=== PATIENT | female | born 1950 | race Caucasian/White ===

== ENCOUNTER 2016-05-11 08:15 | Inpatient (IN) | payer OTHER ==
[2016-04-23 12:10] LABS: % IMMATURE GRANULYOCYTES 0.2 % (0.0-1.1); ABSOLUTE IMMATURE GRANULOCYTES 0.01 10^3/uL (0.00-0.10); ADD DIFF? NO; ADD MORPH? NO; ADD SCAN? NO; ATYPICAL LYMPHOCYTE FLAG 10 (0-99); FRAGMENT RBC FLAG 0 (0-99); HEMATOCRIT 38.3 % (38.0-47.0); HEMOGLOBIN 12.8 g/dL (12.6-16.3); LEFT SHIFT FLG 0 (0-99); LIPEMIA HEMOLYSIS FLAG 80 (0-99); MEAN CELL HEMOGLOBIN 30.9 pg (27.9-34.1); MEAN CELL HEMOGLOBIN CONCENTR. 33.4 g/dL (32.4-36.7); MEAN CELL VOLUME 92.5 fL (81.5-99.8); MEAN PLATELET VOLUME 10.6 fL (8.7-11.7); PLATELET CLUMPS FLAG 0 (0-99); PLATELET COUNT 244 10^3/uL (150-400); RED BLOOD CELL COUNT 4.14 10^6/uL (4.18-5.33); RED CELL DISTRIBUTION WIDTH 14.6 % (11.5-15.2)
[~2016-05-11 08:15] MED LIST: ACETAMINOPHEN 325 MG TAB PO ONE; CEFAZOLIN 2 GM/DEXTR 100 ML IV ONE; CHLORHEXIDINE GLUC HIBICLENS 118 ML BTL TP ONE; DEXAMETHASONE 4 MG/ML VIAL IVP ONE; FAMOTIDINE 20 MG TAB PO ONE; ROPI/epiNEPH/KETOROLAC JOINT COCKTAIL IU ONE; SKIN ADHESIVE (DERMABOND) 1 EACH TP ONE; TRANEXAMIC ACID 3,000 MG in NS 50 ML IRR ONE; TRANEXAMIC ACID 3,000 MG/50 ML BAG IRR ONE; VANCOMYCIN 1 GM VIAL IV ONE
[2016-05-11] MEDS ORDERED: DEXAMETHASONE 4 MG/ML VIAL ONE ×2 (11:38→13:27)
[2016-05-11] MEDS ORDERED: FAMOTIDINE 20 MG TAB ONE (11:38)
[2016-05-11] MEDS ORDERED: ACETAMINOPHEN 325 MG TAB ONE (11:38)
[2016-05-11] MEDS ORDERED: CEFAZOLIN 2 GM/DEXTROSE/100 ML BAG IV ONE (11:38)
[2016-05-11] MEDS ORDERED: LIDOCAINE 1% 5 ML SDV ONE (11:57)
[2016-05-11] MEDS ORDERED: MIDAZOLAM 2 MG/2 ML VIAL ONE (13:09)
[2016-05-11] MEDS ORDERED: ONDANSETRON 4 MG/2 ML VIAL ONE (13:27)
[2016-05-11] MEDS ORDERED: PROMETHAZINE HCL 25 MG SUPPR PR PRN (13:37)
[2016-05-11] MEDS ORDERED: POLYETHYLENE GLYCOL 3350 17 GM PKT PO PRN (13:37)
[2016-05-11] MEDS ORDERED: ONDANSETRON 4 MG/2 ML VIAL IVP PRN (13:37)
[2016-05-11] MEDS ORDERED: TEMAZEPAM 15 MG CAP PO PRN (13:37)
[2016-05-11] MEDS ORDERED: ONDANSETRON DISINTEGRATING 4 MG TAB PO PRN (13:37)
[2016-05-11] MEDS ORDERED: PROMETHAZINE HCL 25 MG/ML INJ IVP PRN (13:37)
[2016-05-11] MEDS ORDERED: BISACODYL 10 MG SUPP PR PRN (13:37)
[2016-05-11] MEDS ORDERED: METOCLOPRAMIDE 10 MG/2 ML VIAL IVP PRN (13:37)
[2016-05-11] MEDS ORDERED: DIPHENOXYLATE/ATROPINE LOMOTIL 1 TAB PO PRN (13:37)
[2016-05-11] MEDS ORDERED: MAGNESIUM HYDROXIDE 30 ML UDCUP PO PRN (13:37)
[2016-05-11] MEDS ORDERED: LACTULOSE 20 GM/30 ML UDCUP PO PRN (13:37)
[2016-05-11] MEDS ORDERED: diphenhydrAMINE 25 MG CAP PO PRN (13:37)
[2016-05-11] MEDS ORDERED: PHARMACY PAIN CONSULT 1 EA MISC PRN (13:37)
[2016-05-11] MEDS ORDERED: ROPIVACAINE HCL 150 MG/30 ML INJ ONE (13:43)
[2016-05-11] MEDS ORDERED: LR 1,000 ML IV SCH (14:00)
--- NOTE | 2016-05-11 14:42 | POSTOPPROG ---
Post Op Note Date of Operation: 05/11/16 Surgeon: Lorrie Mcqueen Statement Request Clerk: Natalya Mcqueen PAc Anesthesiologist: Ad Anesthesia: Spinal Pre-op Diagnosis: L knee djd Post-op Diagnosis: same Indication: pain Procedure: L TKA Findings: djd knee Inf/Abcess present in the surg proc area at time of surgery?: No EBL: 50-100
[2016-05-11] MEDS: oxyCODONE IR 5 MG TAB PO PRN ×3 (16:10→21:33)
[2016-05-11] MEDS: CYCLOBENZAPRINE 10 MG TAB PO PRN (16:10)
--- NOTE | 2016-05-11 16:36 | DX ---
Left Knee, Two Views, at 16:19 p.m. Indication: Recent total knee arthroplasty. Technique: Crosstable lateral and AP views. Findings: A three-piece total knee arthroplasty is anatomically aligned. No perihardware fracture. Expected intraarticular and subcutaneous gas. Impression: Good positioning of total knee arthroplasty.
[2016-05-11] MEDS: ACETAMINOPHEN 325 MG TAB PO SCH (17:35)
[2016-05-11] MEDS ORDERED: NS BOLUS 500 ML (Wide open) IV ONE (20:00)
[2016-05-11] MEDS: SENNOSIDES/DOCUSATE SODIUM TAB PO SCH (20:10)
[2016-05-11] MEDS: ASPIRIN 325 MG TAB PO SCH (20:10)
[2016-05-11] MEDS: FAMOTIDINE 20 MG TAB PO SCH (20:11)
[2016-05-11] MEDS: ceFAZolin 2 GM/DEXTROSE 100 ML IV SCH (22:25)
[2016-05-12] MEDS: ACETAMINOPHEN 325 MG TAB PO SCH ×3 (00:16→11:19)
[2016-05-12] MEDS: oxyCODONE IR 5 MG TAB PO PRN ×5 (00:17→13:28)
[2016-05-12] MEDS: CYCLOBENZAPRINE 10 MG TAB PO PRN (00:17)
--- NOTE | 2016-05-12 01:02 | GOP ---
[f rep st] OPERATIVE REPORT DATE OF OPERATION: 05/11/2016 SURGEON: Zahraa Mcqueen MD BAILIFF: RHEA Henderson. ANESTHESIA: Spinal. PREOPERATIVE DIAGNOSIS: Left knee osteoarthritis. POSTOPERATIVE DIAGNOSIS: Left knee osteoarthritis. PROCEDURE PERFORMED: Left total knee arthroplasty. FINDINGS: ESTIMATED BLOOD LOSS: 30 cc. INDICATIONS: This is a 65-year-old woman with severe and progressive pain and deformity of the left knee unresponsive to conservative care. Risks and benefits of the surgical intervention were explain ed in detail. DESCRIPTION OF PROCEDURE: The patient was brought to the operative room and placed on the table in t he supine position. Spinal anesthesia was induced without difficulty. A pneumatic tourniquet was ap plied about the left proximal thigh, and the leg was prepped and draped in a sterile fashion. The le g rubio was applied. After exsanguination by elevation the tourniquet was inflated to 250 mm of kimberley cury. Incision was made anterior medial from the tibial tuberosity to a point 2 cm proximal to the superior pole of the patella. Medial parapatellar arthrotomy was carried out from the superior pole of the p atella and posteriorly in line with the fibers of the type 2 VMO. The medial collateral ligament was elevated and the infrapatellar fat pad was resected. The patella was everted and the articular surface was excised. A 32 mm patellar button was placed. T he distal femoral guide hole was drilled and the 65 degree alignment franki was placed. A 10 mm distal femoral cut was made without difficulty. Attention was turned to the tibia and a standard 9 mm cut based on the lateral tibial condyle was per formed. The tibial articular surface was excised without difficulty. Attention was turned back to the femur and a size 4 Triathlon tibia femoral cutting block was positio giana. Anterior, posterior, and chamfer cuts were made, followed by the intercondylar box cut. The knee was extended and the remnants of the medial and lateral meniscus were excised. The posterio r capsule was injected with ropivacaine, epinephrine and Toradol. A size 4 MIS mini keel tibial tray was positioned. Trial reduction was then carried out. There was excellent range of motion, alignme nt, and stability using the 11mm polyethylene. All trials were then removed. The joint was thoroughly irrigated and carefully dried. Two packages of cement and 2 grams of vancomycin were mixed in the vacuum mixer and placed on the fixation surface s of all surfaces of the components. The components were implanted and all excess cement was thoroug hly removed. The permanent 11 mm polyethylene was placed without difficulty. The tourniquet was deflated and all bleeders were coagulated. The wound was thoroughly irrigated and closed using interrupted sutures of 2-0 Vicryl for the joint capsule. The subcu was closed with 3-0 Vicryl and the skin with 4-0 Monocryl. Dermabond and Steri-Strips were applied followed by a compre ssive dressing. The patient was then moved from the operating room to the recovery room in good cond ition, having tolerated the procedure well. /[id number]/MODL
[2016-05-12] MEDS: ceFAZolin 2 GM/DEXTROSE 100 ML IV SCH (05:05)
[2016-05-12 05:37] LABS: HEMATOCRIT 34.9 % (38.0-47.0); HEMOGLOBIN 11.3 g/dL (12.6-16.3)
[2016-05-12] MEDS: ASPIRIN 325 MG TAB PO SCH (09:00)
[2016-05-12] MEDS: FAMOTIDINE 20 MG TAB PO SCH (09:01)
[2016-05-12] MEDS: SENNOSIDES/DOCUSATE SODIUM TAB PO SCH (09:01)
--- NOTE | 2016-05-12 10:10 | SOAPPROG ---
SOAP Progress Note Assessment/Plan: Assessment: Kyra is doing well POD 1 s/p L TKA 1) pain management: doing well on oral pain meds. well controlled. 2) anemia: level expected initially postop, asymptomatic. continue to monitor 3) VTe ppx: aspirin 325mg daily, JAMES hose and SCDs. 4) D/c planning: patient may be d/c'd to home today. Plan: 05/12/16 10:08 Subjective: Kyra is doing well today, denies SOB, chest pain and N/V Objective: Vital Signs Temp Pulse Resp BP Pulse Ox 36.7 C 56 L 16 110/79 97 05/12/16 07:36 05/12/16 07:36 05/12/16 07:36 05/12/16 07:36 05/12/16 07:36 Laboratory Results 05/12/16 05:12 05/11/16 05/12/16 05/13/16 05:59 05:59 05:59 Intake Total 4270 150 Output Total 3805 575 Balance 465 -425 LLE: incision dressing is clean and dry, NVI, +pf/df ICD10 Worksheet Patient Problems: Problems Problem Status Diagnosed Primary localized osteoarthritis of left knee Acute
[2016-05-12 13:12] VITALS: BP 121/71; PULSE 53; RESP 17; TEMP 97.6; O2SAT 92
--- NOTE | 2016-05-12 13:38 | GDS ---
[f rep st] DISCHARGE SUMMARY ADMISSION DIAGNOSIS: Left knee osteoarthritis. DISCHARGE DIAGNOSIS: Left knee osteoarthritis. PROCEDURE: Left total knee arthroplasty. VTE PROPHYLAXIS: Aspirin recommended for 3 weeks daily. BRIEF DESCRIPTION OF HOSPITAL STAY: Patient was admitted for an elective joint arthroplasty. The pa tient tolerated the procedure well and has passed physical therapy. The patient was given appropriat e antibiotic prophylaxis and venous thromboembolism prophylaxis. The patient's pain was well control led on oral pain medication, patient was holding down food, and had urinated. Decision was made to d ischarge the patient. The patient was given post-operative prescriptions pre-operatively. PLAN: Please follow up as scheduled with Dr. Mcqueen at [facility] on May 31, 2016 at 11:00 a.m. /[id number]/MODL
== END 2016-05-12 13:57 | disposition home or self-care (01) | DRG 470 ==
LOC: F3N 11:00
PROVIDERS: ADMIT Orthopaedic Surgery; ATTEND Orthopaedic Surgery
PROC: 0SRD0J9 Replacement of Left Knee Joint with Synthetic Substitute, Cemented, Open Approach (ICD-10-PCS; principal; 2016-05-11 13:15)
DX: M17.12 Unilateral primary osteoarthritis, left knee (principal)
CPT/HCPCS: 97116-GP; 97161-GP; 97165-GO; C1713; J0171; J0690; J1100; J1885; J2250; J2405; J2795; J3370

== ENCOUNTER 2016-05-17 09:09 | Emergency (ER) | payer OTHER ==
--- NOTE | 2016-05-17 09:21 | EDPHY ---
H & P Stated Complaint: post l knee replacement surgery/constipation/vomiting Time Seen by Provider: 05/17/16 09:15 - Personal History Current Tetanus/Diphtheria Vaccine: Unsure - Medical/Surgical History Hx Asthma: No Hx Chronic Respiratory Disease: No Hx Diabetes: No Hx Cardiac Disease: No Hx Renal Disease: No Hx Cirrhosis: No Hx Alcoholism: No Hx HIV/AIDS: No Hx Splenectomy or Spleen Trauma: No Other PMH: rectocele repair l knee replacement - Social History Smoking Status: Former smoker Constitutional: Initial Vital Signs Temperature (C) 36.5 C 05/17/16 09:12 Heart Rate 69 05/17/16 09:12 Respiratory Rate 17 05/17/16 09:12 Blood Pressure 136/62 H 05/17/16 09:12 O2 Sat (%) 98 05/17/16 09:12 O2 Delivery Mode Nasal Cannula O2 (L/minute) 2 Allergies/Adverse Reactions: No Known Allergies Allergy (Verified 05/17/16 09:09) Home Medications: Medication Instructions Recorded Acetaminophen [Tylenol 325mg (*)] 650 mg PO Q6HRS #0 tab 05/12/16 Aspirin [Aspirin 325 mg (*)] 325 mg PO DAILY #0 tab 05/12/16 Sennosides/Docusate Sodium 1 - 2 tab PO BID #0 tab 05/12/16 [Senokot-S] celeCOXIB [Celebrex (*)] 200 mg PO DAILY #20 cap 05/12/16 oxyCODONE IR [Oxycodone Ir (*)] 5 - 10 mg PO Q3HRS PRN #120 tab 05/12/16 Zofran 05/17/16 Medical Decision Making ED Course/Re-evaluation: CHIEF COMPLAINT: Nausea vomiting constipation HISTORY OF PRESENT ILLNESS: 65-year-old female who had a total knee replacement on the left done by Dr. Mcqueen this past Saturday. The 1st day home which was postoperative day 2 She had significant problems with nausea associated with her oxycodone. She then had difficulty with pain control and then was put back on oxycodone and given Zofran before that. That seemed to work initially but now she is very constipated and is having significant nausea and also pain control issues REVIEW OF SYSTEMS: A 10 point review of systems was performed and is negative with the exception of the elements mentioned in the history of present illness. PHYSICAL EXAM: HR, BP, O2 Sat, RR. Temp noted General Appearance: Alert, well hydrated, appropriate, and non-toxic appearing. Head: Atraumatic without scalp tenderness or obvious injury Eyes: Pupils equal, round, reactive to light and accommodation, EOMI, no trauma , no injection. Ears: Clear bilaterally, no perforation, normal landmarks Nose: Atraumatic, no rhinorrhea, clear. Throat: There is no erythema or exudates, no lesions, normal tonsils, mucus membranes moist. Neck: Supple, 2+ carotid upstroke, nontender, no lymphadenopathy. Respiratory: No retractions, no distress, no wheezes, and no accessory muscle use. Lungs are clear to auscultation bilaterally. Cardiovascular: Regular rate and rhythm, no murmurs, rubs, or gallops. Bilateral carotid, radial, dorsalis pedis, and posterior tibial pulses intact. Good capillary refill all extremities. Gastrointestinal: Abdomen is somewhat hard on the lower left quadrant probably from stool, nontender, non-distended, no masses, no rebound, no guarding, no peritoneal signs. Musculoskeletal: Normal active ROM of all extremities, atraumatic. Neurological: Alert, appropriate, and interactive. The patient has normal DTRs and non-focal cranial nerves, motor, sensory, and cerebellar exam. Skin: No rashes, good turgor, no nodules on palpation. Past medical history: Noncontributory except for knee osteoarthritis Past surgical history: Left total knee replacement 6 days ago Family history: Noncontributory Social history: , does not abuse tobacco drugs or alcohol, accompanied here by her DIFFERENTIAL DIAGNOSIS: The differential diagnosis for the patient's nausea and vomiting included but was not limited to gastroenteritis, gastritis, appendicitis, constipation, and medication side effect. MEDICAL DECISION MAKING: This patient is constipated and having nausea and vomiting postoperatively. She is also having very poor pain control regarding her knee. Given this patient IV fluids and I will check her urine today because she feels like her bladder is full and she is going frequently also. She has tried to use 2 enemas but it has not worked. She has also tried some Dulcolax suppositories. She has had minimal results from the suppositories and enemas. This patient has not had great results regarding the enemas but she is much much more comfortable. Had a long discussion with the patient and her . They are going to use some magnesium citrate and then get on a fairly significant MiraLax regimen while she is taking all these narcotic analgesics. Unfortunately she has only used a little bit of Colace which I believe is the main reason she is constipated after taking Oxy IR for her knee replacement surgery. I will write out specific instructions regarding the bowel preparation. I will also provide some more Zofran. - Data Points Laboratory Results: Laboratory Results 05/17/16 09:30 05/17/16 09:23 05/17/16 05/17/16 05/17/16 09:55 09:30 09:23 WBC 9.43 10^3/uL (3.80-9.50) RBC 4.04 L 10^6/uL (4.18-5.33) Hgb 12.6 g/dL (12.6-16.3) Hct 36.1 L % (38.0-47.0) MCV 89.4 fL (81.5-99.8) MCH 31.2 pg (27.9-34.1) MCHC 34.9 g/dL (32.4-36.7) RDW 13.4 % (11.5-15.2) Plt Count 291 10^3/uL (150-400) MPV 10.2 fL (8.7-11.7) Neut % (Auto) 78.1 H % (39.3-74.2) Lymph % (Auto) 10.3 L % (15.0-45.0) [place] % (Auto) 8.9 % (4.5-13.0) Eos % (Auto) 2.2 % (0.6-7.6) Baso % (Auto) 0.2 L % (0.3-1.7) Nucleat RBC Rel Count 0.0 % (0.0-0.2) Absolute Neuts (auto) 7.36 H 10^3/uL (1.70-6.50) Absolute Lymphs (auto) 0.97 L 10^3/uL (1.00-3.00) Absolute Monos (auto) 0.84 H 10^3/uL (0.30-0.80) Absolute Eos (auto) 0.21 10^3/uL (0.03-0.40) Absolute Basos (auto) 0.02 10^3/uL (0.02-0.10) Absolute Nucleated RBC 0.00 10^3/uL (0-0.01) Immature Gran % 0.3 % (0.0-1.1) Immature Gran # 0.03 10^3/uL (0.00-0.10) Sodium 134 mEq/L (134-144) Potassium 4.4 mEq/L (3.5-5.2) Chloride 102 mEq/L (97-110) Carbon Dioxide 22 mEq/l (22-31) Anion Gap 10 mEq/L (8-16) BUN 6 L mg/dL (7-23) Creatinine 0.6 mg/dL (0.6-1.0) Estimated GFR > 60 Glucose 93 mg/dL (70-100) Calcium 10.7 H mg/dL (8.5-10.4) Phosphorus 3.2 mg/dL (2.5-4.5) Urine Color PALE YELLOW Urine Appearance CLEAR Urine pH 8.0 H (5.0-7.5) Ur Specific Onset 1.004 (1.002-1.030) Urine Protein NEGATIVE (NEGATIVE) Urine Ketones TRACE H (NEGATIVE) Urine Blood NEGATIVE (NEGATIVE) Urine Nitrate NEGATIVE (NEGATIVE) Urine Bilirubin NEGATIVE (NEGATIVE) Urine Urobilinogen NEGATIVE EU (0.2-1.0) Ur Leukocyte Esterase NEGATIVE (NEGATIVE) Ur Culture Indicated? NOT INDICATED (NI) Urine Glucose NEGATIVE (NEGATIVE) Medications Given: Discontinued Medications Hydromorphone HCl (Dilaudid) 1 mg IVP EDNOW ONE Stop: 05/17/16 09:23 Last Admin: 05/17/16 09:40 Dose: 1 mg Sodium Chloride (Ns) 1,000 mls @ 0 mls/hr IV ONCE ONE PRN Reason: Wide Open Stop: 05/17/16 09:45 Last Admin: 05/17/16 09:53 Dose: 1,000 mls Ketorolac Tromethamine (Toradol) 30 mg IVP EDNOW ONE Stop: 05/17/16 09:23 Last Admin: 05/17/16 09:30 Dose: 30 mg Ondansetron HCl (Zofran) 4 mg IVP EDNOW ONE Stop: 05/17/16 09:23 Last Admin: 05/17/16 09:30 Dose: 4 mg Departure - Departure Disposition: Home, Routine, Self-Care Clinical Impression: Constipation Qualifiers: Constipation type: drug induced constipation Qualifier Code: (K59.03) Drug induced constipation Condition: Good Instructions: High Fiber Diet (ED), Constipation (ED) Additional Instructions: By 1 bottle of magnesium citrate and drink that initially Makes a half of container of MiraLax with a half gal of Gatorade or some other liquid. Drinks a glass every 15-30 minutes throughout the day. Once you have had adequate bowel movement continue to take 2-3 scoops of MiraLax daily if her stool is too soft you can back off slightly continue this for as long as your on pain meds. Referrals: Edgardo Mora, [Primary Care Provider] - As per Instructions
[2016-05-17] MEDS ORDERED: KETOROLAC 30 MG/1 ML SDV IVP ONE (09:22)
[2016-05-17] MEDS ORDERED: HYDROmorphONE/DILAUDID 1 MG/ML SYR IVP ONE (09:22)
[2016-05-17] MEDS ORDERED: ONDANSETRON 4 MG/2 ML VIAL IVP ONE (09:22)
[2016-05-17] MEDS ORDERED: KETOROLAC 30 MG/1 ML SDV ONE (09:23)
[2016-05-17] MEDS ORDERED: HYDROmorphONE/DILAUDID 1 MG/ML SYR ONE (09:24)
[2016-05-17] MEDS ORDERED: ONDANSETRON 4 MG/2 ML VIAL ONE (09:24)
[2016-05-17] MEDS ORDERED: NS 1,000 ML IV ONE (09:44)
[2016-05-17 09:56] LABS: % IMMATURE GRANULYOCYTES 0.3 % (0.0-1.1); ABSOLUTE IMMATURE GRANULOCYTES 0.03 10^3/uL (0.00-0.10); ADD DIFF? NO; ADD MORPH? NO; ADD SCAN? NO; ATYPICAL LYMPHOCYTE FLAG 0 (0-99); FRAGMENT RBC FLAG 0 (0-99); HEMATOCRIT 36.1 % (38.0-47.0); HEMOGLOBIN 12.6 g/dL (12.6-16.3); LEFT SHIFT FLG 0 (0-99); LIPEMIA HEMOLYSIS FLAG 90 (0-99); MEAN CELL HEMOGLOBIN 31.2 pg (27.9-34.1); MEAN CELL HEMOGLOBIN CONCENTR. 34.9 g/dL (32.4-36.7); MEAN CELL VOLUME 89.4 fL (81.5-99.8); MEAN PLATELET VOLUME 10.2 fL (8.7-11.7); PLATELET CLUMPS FLAG 0 (0-99); PLATELET COUNT 291 10^3/uL (150-400); RED BLOOD CELL COUNT 4.04 10^6/uL (4.18-5.33); RED CELL DISTRIBUTION WIDTH 13.4 % (11.5-15.2)
[2016-05-17 10:07] VITALS: PULSE 67
[2016-05-17 10:12] LABS: COLOR PALE YELLOW; LEUKOCYTE ESTERASE,URINE NEGATIVE (NEGATIVE); NITRITE,URINE NEGATIVE (NEGATIVE)
[2016-05-17 10:13] LABS: ANION GAP 10 mEq/L (8-16); CALCIUM 10.7 mg/dL (8.5-10.4); CARBON DIOXIDE 22 mEq/l (22-31); CHLORIDE 102 mEq/L (97-110); CREATININE 0.6 mg/dL (0.6-1.0); GLOMERULAR FILTRATION RATE > 60; GLUCOSE 93 mg/dL (70-100); POTASSIUM 4.4 mEq/L (3.5-5.2); SODIUM 134 mEq/L (134-144)
[2016-05-17 13:24] VITALS: BP 110/65; RESP 18; TEMP 98.4; O2SAT 96
== END 2016-05-17 13:23 | disposition home or self-care (01) ==
DX: K59.03 Drug induced constipation (principal); Z87.891 Personal history of nicotine dependence; Z79.82 Long term (current) use of aspirin
CPT/HCPCS: 96374; J1170; J1885; J2405

== ENCOUNTER → 2017-09-25 | Outpatient (CLI) | payer OTHER | LOC: FIMAGING 11:10 | PROVIDERS: ATTEND Family Medicine | DX: Z13.820 Encounter for screening for osteoporosis (principal); M81.0 Age-related osteoporosis without current pathological fracture; Z78.0 Asymptomatic menopausal state ==